=== PATIENT | female | born 1995 | race Caucasian/White ===

== ENCOUNTER → 2024-11-30 | Outpatient (CLI) | payer OTHER | LOC: M WUC 10:50 | PROVIDERS: ATTEND Family Medicine Adult Medicine | DX: Z11.1 Encounter for screening for respiratory tuberculosis (principal) ==

== ENCOUNTER → 2025-01-10 | Outpatient (CLI) | payer OTHER ==
[2025-01-10 14:57] LABS: PLATELET COUNT, AUTOMATED 249 10^3/uL (150-450)
[2025-01-10 15:08] LABS: ESTIMATED AVERAGE GLUCOSE 94.0 MG/DL (60-110)
[2025-01-10 15:10] LABS: LDH LACTATE DEHYDROGENASE 133 U/L (120-246)
[2025-01-10 15:11] LABS: ALT/SGPT 65 U/L (7.0-40); AST/SGOT 31 U/L (<34); CREATININE FOR GFR 0.64 MG/DL (0.55-1.30); GLOMERULAR FILTRATION RATE > 90.0 (>60)
[2025-01-10 15:22] LABS: TOTAL PROTEIN,RANDOM URINE 26.8 MG/DL (0.0-14.0)
[2025-01-10 15:32] LABS: HIV 1&2 SCREEN NEGATIVE (NEGATIVE)
[2025-01-10 15:40] LABS: HEPATITIS C VIRUS ABY INDEX < 0.02 INDEX (<0.8)
[2025-01-10 16:12] LABS: Trichomonas vaginalis (AMP) NOT DETECTED (NEGATIVE)
[2025-01-10 16:35] LABS: GC DNA AMPLIFICATION NEGATIVE (NEGATIVE)
== END ==
LOC: M PLALAB 09:46
PROVIDERS: ATTEND Nurse Practitioner Family
DX: Z34.80 Encounter for supervision of other normal pregnancy, unspecified trimester (principal); Z68.41 Body mass index [BMI] 40.0-44.9, adult

== ENCOUNTER → 2025-01-25 | Outpatient (CLI) | payer OTHER | LOC: M PLALAB 10:18 | PROVIDERS: ATTEND Nurse Practitioner Family | DX: Z34.91 Encounter for supervision of normal pregnancy, unspecified, first trimester (principal); Z31.430 Encounter of female for testing for genetic disease carrier status for procreative management ==

== ENCOUNTER → 2025-02-07 | Outpatient (CLI) | payer OTHER | LOC: M WHC 10:07 | PROVIDERS: ATTEND Nurse Practitioner Family | DX: Z34.80 Encounter for supervision of other normal pregnancy, unspecified trimester (principal); Z53.9 Procedure and treatment not carried out, unspecified reason ==

== ENCOUNTER → 2025-02-14 | Outpatient (CLI) | payer OTHER | LOC: M PLALAB 11:59 | PROVIDERS: ATTEND Nurse Practitioner Family | DX: Z34.80 Encounter for supervision of other normal pregnancy, unspecified trimester (principal) ==

== ENCOUNTER → 2025-02-28 | Outpatient (CLI) | payer OTHER | LOC: M WHC 06:55 | PROVIDERS: ATTEND Nurse Practitioner Family | DX: Z34.80 Encounter for supervision of other normal pregnancy, unspecified trimester (principal) ==

== ENCOUNTER 2025-03-12 16:50 | Emergency (ER) | payer OTHER ==
[~2025-03-12] VITALS: Ht 177.8 cm; Wt 133.7 kg
[2025-03-12 17:42] LABS: KETONE, URINE AUTO RFX NEGATIVE (NEGATIVE); LEUKOCYTE ESTERASE UR AUTO RFX NEGATIVE (NEGATIVE); MUCUS, URINE RFX SMALL (NEGATIVE); NITRITE, URINE AUTO RFX NEGATIVE (NEGATIVE); RBC, URINE AUTO RFX 0 /HPF (0-3); SQUAM EPITHELIAL CELL UR AURFX 7 /HPF (0-6); TRANSITIONAL EPITHELIAL AU RFX <1 /HPF; WBC, URINE AUTO RFX 1 /HPF (0-3)
[2025-03-12 18:03] LABS: BASO # 0.0 10^3/uL (0.0-0.2); BASO % 0.4 % (0.0-1.0); EOS # 0.1 10^3/uL (0.0-0.5); EOS % 0.8 % (0.0-3.0); LYMPH # 2.3 10^3/uL (1.5-5.0); LYMPH % 20.4 % (24.0-44.0); MONO # 0.8 10^3/uL (0.0-0.8); MONO % 6.9 % (2.0-8.0); NEUTROPHILS # 7.8 10^3/uL (1.5-8.5); NEUTROPHILS % 70.9 % (36.0-66.0); PLATELET COUNT, AUTOMATED 227 10^3/uL (150-450)
[2025-03-12 18:34] LABS: ALT/SGPT 44 U/L (7.0-40); AST/SGOT 31 U/L (<34); CALCIUM LEVEL 9.3 MG/DL (8.5-10.1); CARBON DIOXIDE LEVEL 23 MMOL/L (20-31); CHLORIDE LEVEL 107 MMOL/L (98-107); CREATININE FOR GFR 0.55 MG/DL (0.55-1.30); GLOMERULAR FILTRATION RATE > 90.0 (>60); POTASSIUM SERUM 4.1 MMOL/L (3.5-5.1); SODIUM LEVEL 141 MMOL/L (136-145)
[2025-03-12] MEDS ORDERED: CEPH500C PO (22:21)
[2025-03-12] MEDS: ACETAMINOPHEN *IV* 1,000 MG in IV 1 EA IV ONE (22:36)
[2025-03-12] MEDS: CEPHALEXIN 500 MG CAP PO ONE (22:37)
[2025-03-13 00:12] VITALS: BP 140/67
[2025-03-13] MEDS: PROPRANOLOL 60MG LA CAP PO SCH (00:12)
[2025-03-13 00:14] VITALS: BP 129/65; TEMP 97.5; O2SAT 95
== END 2025-03-13 00:21 | disposition home or self-care (01) ==
LOC: M ED 16:50
DX: O23.92 Unspecified genitourinary tract infection in pregnancy, second trimester (principal); O34.82 Maternal care for other abnormalities of pelvic organs, second trimester; R82.71 Bacteriuria; N83.291 Other ovarian cyst, right side; Z3A.18 18 weeks gestation of pregnancy; Z79.2 Long term (current) use of antibiotics
CPT/HCPCS: 36415; 76815; 76857; 80048; 80076; 81001; 83690; 85025; 87486; 87581; 87633; 87798; 93976; 96365; 96366; 99285; J0134

== ENCOUNTER → 2025-03-14 | Outpatient (CLI) | payer OTHER ==
[~2025-03-14] MED LIST: CEPH500C PO
== END ==
LOC: M WHC 13:59
PROVIDERS: ATTEND Nurse Practitioner Family
DX: Z34.82 Encounter for supervision of other normal pregnancy, second trimester (principal); Z3A.19 19 weeks gestation of pregnancy